=== PATIENT | female | born 1955 | race Caucasian/White ===

== ENCOUNTER 2019-06-05 03:11 | Observation (INO) ==
[2019-06-05] MEDS ORDERED: DUONEB (A & A) INH ONE (03:20)
[2019-06-05] MEDS ORDERED: SOLU-MEDROL IV ONE ×2 (03:21→12:00)
[2019-06-05] MEDS ORDERED: MAGNESIUM SULFATE 1 GM/D5W 1 GM/100 ML IVPB IV ONE (03:22)
--- NOTE | 2019-06-05 03:27 | PROVIDER DOCUMENTATION ---
HPI-Respiratory General - General Chief Complaint: Shortness of Breath Stated Complaint: COPD/SOB Time Seen by Provider: 06/05/19 03:14 Source: patient Allergies/Adverse Reactions: Patient Allergies Allergy/AdvReac Type Severity Reaction Status Date / Time levofloxacin [From Levaquin] Allergy Intermediate RASH Verified 11/28/18 18:55 Home Medications: Home Medication List Medication Instructions Recorded Confirmed Last Taken Type Albuterol Sulfate [Proair Hfa] 8.5 gm IH PRN PRN 11/09/14 08/31/16 11/30/15 History Febuxostat [Uloric] 80 mg PO DAILY 11/09/14 08/31/16 08/31/16 03:00 History Ipratropium/Albuterol Sulfate 3 ml IH PRN PRN 11/09/14 08/31/16 08/30/16 17:00 History [Iprat-Albut 0.5-3(2.5) mg/3 ml] Levothyroxine [Synthroid] 175 microgm PO DAILY 11/09/14 08/31/16 08/31/16 03:00 History Nebivolol [Bystolic] 5 mg PO DAILY 11/09/14 08/31/16 08/31/16 03:00 History Albuterol [Albuterol Neb] 2.5 mg INH RTQ6H PRN #120 neb 11/11/14 08/31/16 11/30/15 Rx Fluticasone/Salmet 250/50 INH 1 inh INH BID 11/30/15 08/31/16 11/30/15 History [Advair 250/50 Diskus] Hydrocodone/APAP 7.5 mg/325 mg 1 each PO Q6H PRN PRN #30 tablet 02/01/16 08/31/16 Unknown Rx [[place]-7.5] Lisinopril 20 mg PO DAILY 08/31/16 08/31/16 08/31/16 03:00 History Naproxen 500 mg PO BID PRN PRN #60 tablet 08/31/16 Unknown Rx Clonidine [Catapres] 0.1 mg PO TID PRN #15 tablet 01/16/17 Unknown Rx Albuterol Sulfate Inhaler 2 puff INH Q6H PRN PRN #1 inhaler 01/03/18 Unknown Rx [Ventolin Hfa] Clonidine [Catapres] 0.1 mg PO HS #30 tab 06/22/18 Unknown Rx Hydroxyzine Pamoate [Vistaril] 25 mg PO BID PRN PRN #30 cap 06/23/18 Unknown Rx - History of Present Illness-Resp Nature of Presenting Problem: Patient is a 64 year old morbidly obese white female with history of severe COPD requiring home oxygen at night, HTN, and tobacco abuse who presents by private car with worsening SOB, dry cough, and wheezing since yesterday that has not responded to home nebulizer treatments ([facility] steroid inhaler, and home oxygen. Followed by Dr. Del Cid. Denies history of CAD, chest pain. Review of Systems - Adult - REVIEW OF SYSTEMS - ADULT Constitutional: reports: chills, fever Eyes: reports: no symptoms reported Ears, Nose, Mouth & Throat: reports: no symptoms reported Cardiovascular: denies: chest pain Respiratory: reports: cough, shortness of breath, wheezing Gastrointestinal: reports: no symptoms reported Genitourinary: reports: no symptoms reported Musculoskeletal: reports: no symptoms reported Neurological: reports: no symptoms reported Psychiatric: reports: anxiety Endocrine: reports: no symptoms reported Hematologic/Lymphatic: reports: no symptoms reported Allergic/Immunologic: reports: no symptoms reported All Other Systems: Reviewed and Negative Past History - Adult - PAST MEDICAL HISTORY-ADULT Review of Records: reports: Old Records Reviewed, Nursing Assessment Review, Medications Reviewed, Social history reviewed & non-contributory. Major Childhood Illnesses: reports: denies history Cardiovascular: reports: HTN Respiratory: reports: asthma, COPD Gastrointestinal: reports: diverticulosis, other Obstetrical/Gynecological: reports: denies history Genitourinary: reports: denies history Musculoskeletal: reports: other (gout) Neurological: reports: denies history Psychiatric: reports: anxiety Endocrine/Immune: reports: thyroid disorder (cancer) Other Conditions: reports: denies history - PRIOR SURGERIES/PROCEDURES Surgical/Procedure History: reports: cholecystectomy, BTL, orthopedic (extremity) (carpal tunnel), other (thyroidectomy) - IMMUNIZATION STATUS Childhood Immunizations: See Nurse Assessment Flu Vaccine: See Nurse Assessment - FAMILY HISTORY Family History: reviewed, not pertinent - SOCIAL HISTORY Smoking: quit greater than 1 year (2-3 ppd for many years) Substance Use: denies Alcohol Use Frequency: occasionally Living Situation: family Physical Exam-General - PHYSICAL EXAM-ADULT Initial Vital Signs Reviewed: Yes - CONSTITUTIONAL General Appearance: alert, obese, other (anxious, in no acute distress) - EYES Eyes: other (clear) - HEAD, EARS, NOSE, MOUTH & THROAT HENMT: normocephalic/atraumatic, moist mucous membranes - NECK Neck: non-tender, full range of motion, supple - RESPIRATORY Respiratory: no pleuratic chest pain, no accessory muscle use, decreased breath sounds, wheezing. negative: accessory muscle use - CARDIOVASCULAR Cardiovascular: regular rate, rhythm - GASTROINTESTINAL (ABDOMEN) Abdominal Exam: non tender, soft, other (obese) - LYMPHATIC Lymphatic: no adenopathy - MUSCULOSKELETAL Back Exam: normal inspection, no CVA tenderness Extremity: normal range of motion, non-tender, no calf tenderness - SKIN Integumentary: normal color, normal turgor, warm/dry - NEUROLOGIC Neurologic: grossly normal, no motor/sensory deficits - PSYCHIATRIC Psych/Mental Status: oriented x 3, anxious Progress - PLAN OF CARE/RESULTS Progress/Plan/Lab Results: Vital Signs - 8 hr 06/05/19 03:21 06/05/19 03:30 06/05/19 03:45 Temperature 100.1 F H Pulse Rate 93 H 90 94 H Respiratory Rate 28 H 13 20 Blood Pressure 159/103 125/100 O2 Sat by Pulse Oximetry 93 L 93 L 94 L 06/05/19 04:15 06/05/19 05:15 Temperature Pulse Rate 86 80 Respiratory Rate 19 20 Blood Pressure 145/106 160/99 O2 Sat by Pulse Oximetry 95 92 L Laboratory Results - last 24 hr 06/05/19 06/05/19 06/05/19 03:30 03:30 03:30 WBC 9.69 RBC 5.04 Hgb 14.6 Hct 46.1 MCV 91.5 MCH 29.0 MCHC 31.7 L RDW Std Deviation 14.3 Plt Count 239 MPV 10.5 H Immature Gran % (Auto) 0.2 Neut % (Auto) 79.1 H Lymph % (Auto) 9.9 L Posey % (Auto) 9.5 H Eos % (Auto) 0.8 Baso % (Auto) 0.5 Immature Gran # (Auto) 0.02 Neut # (Auto) 7.66 H Lymph # (Auto) 0.96 L Posey # (Auto) 0.92 H Eos # (Auto) 0.08 Baso # (Auto) 0.05 Specimen Type Sample Site pH pCO2 pO2 HCO3 Base Excess Oxyhemoglobin ABG O2 Sat (Calculated) ABG O2 Saturation ABG Carboxyhemoglobin ABG Methemoglobin Seun Test A-a O2 Difference Total Hemoglobin Lactate Blood Gas Modality FiO2 % Sodium Potassium Chloride Carbon Dioxide Anion Gap BUN Creatinine Estimated GFR/1.73 m2 BUN/Creatinine Ratio Glucose Calculated Osmolality Calcium Total Bilirubin AST ALT Alkaline Phosphatase Creatine Kinase 130 Troponin T High Sens Zug-F-Tzrirwzesbi Pept Total Protein Albumin Globulin Albumin/Globulin Ratio Plasma Lactate 1.5 Influenza A (Rapid) Influenza B (Rapid) 06/05/19 06/05/19 06/05/19 03:30 03:30 03:37 WBC RBC Hgb Hct MCV MCH MCHC RDW Std Deviation Plt Count MPV Immature Gran % (Auto) Neut % (Auto) Lymph % (Auto) Posey % (Auto) Eos % (Auto) Baso % (Auto) Immature Gran # (Auto) Neut # (Auto) Lymph # (Auto) Posey # (Auto) Eos # (Auto) Baso # (Auto) Specimen Type ARTERIAL Sample Site R RADIAL pH 7.50 H pCO2 32 L pO2 63 HCO3 26.7 H Base Excess 2.5 Oxyhemoglobin 91.3 L ABG O2 Sat (Calculated) 20.1 ABG O2 Saturation 94.5 L ABG Carboxyhemoglobin 2.10 ABG Methemoglobin 1.3 Seun Test YES A-a O2 Difference 47.0 Total Hemoglobin 15.7 Lactate 1.40 Blood Gas Modality ROOM AIR FiO2 % 21.0 Sodium 136 Potassium 4.7 Chloride 97 L Carbon Dioxide 25 Anion Gap 14 BUN 17 Creatinine 0.8 Estimated GFR/1.73 m2 > 60 BUN/Creatinine Ratio 21 Glucose 119 H Calculated Osmolality 275 Calcium 9.6 Total Bilirubin 0.60 AST 17 ALT 16 Alkaline Phosphatase 91 Creatine Kinase Troponin T High Sens Wic-Q-Hynyibchewu Pept 99 Total Protein 7.0 Albumin 4.6 Globulin 2.0 Albumin/Globulin Ratio 2.0 Plasma Lactate Influenza A (Rapid) Influenza B (Rapid) 06/05/19 06/05/19 03:56 04:15 WBC RBC Hgb Hct MCV MCH MCHC RDW Std Deviation Plt Count MPV Immature Gran % (Auto) Neut % (Auto) Lymph % (Auto) Posey % (Auto) Eos % (Auto) Baso % (Auto) Immature Gran # (Auto) Neut # (Auto) Lymph # (Auto) Posey # (Auto) Eos # (Auto) Baso # (Auto) Specimen Type Sample Site pH pCO2 pO2 HCO3 Base Excess Oxyhemoglobin ABG O2 Sat (Calculated) ABG O2 Saturation ABG Carboxyhemoglobin ABG Methemoglobin Seun Test A-a O2 Difference Total Hemoglobin Lactate Blood Gas Modality FiO2 % Sodium Potassium Chloride Carbon Dioxide Anion Gap BUN Creatinine Estimated GFR/1.73 m2 BUN/Creatinine Ratio Glucose Calculated Osmolality Calcium Total Bilirubin AST ALT Alkaline Phosphatase Creatine Kinase Troponin T High Sens 7 Zyp-W-Bxslxhrrloi Pept Total Protein Albumin Globulin Albumin/Globulin Ratio Plasma Lactate Influenza A (Rapid) NEGATIVE Influenza B (Rapid) NEGATIVE Orders Category Date Time Status Cardiac Monitoring DIRECTED Care 06/05/19 03:23 Active NEWS Score >or=5:Order NEWS Bundle S.O. NOW Care 06/05/19 03:24 Active Notify Provider of NEWS Score NOW Care 06/05/19 03:28 Active CHEST-PORTABLE [RAD] Stat Exams 06/05/19 03:23 Taken ABG [RESP] Routine Lab 06/05/19 03:37 Completed BLOOD CULTURE [BLDCUL] Stat Lab 06/05/19 03:35 Ordered CBC WITH ELECTRONIC DIFF [HEME] Stat Lab 06/05/19 03:30 Completed CK PROFILE [SP CHEM] Stat Lab 06/05/19 03:30 Completed CMP [COMPREHENSIVE METABOLIC PANEL] [CHEM] Stat Lab 06/05/19 03:[address] Stat Lab 06/05/19 04:15 Completed LACTATE, PLASMA [CHEM] Lab 06/05/19 06:30 Uncollected LACTATE, PLASMA [CHEM] Lab 06/05/19 09:30 Uncollected LACTATE, PLASMA [CHEM] Q3H Lab 06/05/19 03:30 Completed TROPONIN T HIGH SENSITIVITY Stat Lab 06/05/19 03:56 Completed bnp [PRO B-NATRIURETIC PEPTIDE] Stat Lab 06/05/19 03:30 Completed Albuterol 2.5MG/Ipratrop 0.5MG [Duoneb (A & A)] Med 06/05/19 03:20 Discontinued 3 ml INH NOW ONE CefTRIAXONE [Rocephin] 1 gm Med 06/05/19 04:20 Discontinued 0.9% Sodium Chloride Inj [Ns] 50 ml IV NOW Hydrocodone/APAP 5 mg/325 mg [[place]-5] Med 06/05/19 04:59 Discontinued 1 each PO NOW ONE Magnesium Sulfate 1 gm/D5w Med 06/05/19 03:22 Discontinued 1 gm in 100 ml IV NOW Methylprednisolone Sod Succ [Solu-Medrol] Med 06/05/19 03:21 Discontinued 125 mg IV STAT ONE Aerosol Treatments Routine Oth 06/05/19 03:20 Completed Aerosol Treatments Stat Oth 06/05/19 03:20 Completed Oxygen Device Stat Oth 06/05/19 03:24 Active Pulse Oximetry Stat Oth 06/05/19 03:24 Completed EKG [EKG] Stat Ther 06/05/19 03:24 Draft Result Diagrams: 06/05/19 03:30 06/05/19 03:30 - REASSESSMENT Reassessment #1 Time Reassessed: 05:35 Status: improving Reassessment Comment: continues to wheeze but feels better - EKG 1 Time of EKG reading by physician:: 03:20 EKG Read and Signed by:: Jose Albert Rate: 90 Rhythm: NSR [place]: normal [place] Interval: normal ST Wave: normal Comments: no STEMI - XRAY 1 XRAY Study: Chest XRAY Interpretation: NAD - CONSULTS/PCP/HOSPITALIST Notification #1 *Consult/PCP/Hospitalist*: Dr. Del Cid Time Discussed: 05:45 Consult Disposition: Admit Departure - Departure Date of Disposition Decision: 06/05/19 Time of Disposition Decision: 05:43 DIAGNOSIS: COPD exacerbation Disposition: ADMITTED INPATIENT 09 Certified Medical Emergency: Emergent Condition: Stable Referrals and Follow-Ups: Raad Del Cid MD [Primary Care Provider] - - Critical Care Note This patient required my direct & personal management of CC.: No Attestation - Physician/ NERI Attestation Patient care was provided by Advanced Practice Provider:: No The physician spent face to face time with patient:: Yes Advanced Practice Provider documentation review:: Supervising physician onsite and consulted in the evaluation and care of this patient. The physician did have a face to face encounter with the patient.
[2019-06-05 03:52] LABS: BE 2.5 mmoll (-3.0-3.0); BLOOD TYPE ARTERIAL; HCO3-(ACT) 26.7 mmoll (20.0-26.0); METHB 1.3 % (0.0-1.5); O2(CT) 20.1 mL/dL (15.0-23.0); O2HB 91.3 % (95.0-99.0); PCO2(98.6) 32 mmHg (35-45); PO2(98.6) 63 mmHg (60-100); SAMPLE BLOOD; SAO2 94.5 % (95.0-100.0); THB 15.7 g/dL (11.5-17.4)
[2019-06-05 03:54] LABS: ALLEN TEST YES; MODALITY ROOM AIR
[2019-06-05 04:04] LABS: AGAP 14; ALBUMIN 4.6 g/dL (3.5-5.0); ALKALINE PHOSPHATASE 91 U/L (32-104); BUN 17 mg/dL (8-22); CALCIUM 9.6 mg/dL (8.8-10.2); CHLORIDE 97 mmol/L (98-107); COSMO 275; CREATININE 0.8 mg/dL (0.5-0.9); ESTIMATED GFR > 60; GLUCOSE 119 mg/dL (70-104); GOT 17 U/L (10-30); GPT 16 U/L (10-36); POTASSIUM 4.7 mmol/L (3.5-5.1); SODIUM 136 mmol/L (136-145); TCO2 25 mmol/L (25-35)
[2019-06-05 04:13] LABS: BASO# 0.05 X1000 (0.0-0.2); BASO% 0.5 % (0.0-0.8); EOS# 0.08 X1000 (0.0-0.7); EOS% 0.8 % (0.0-10.0); HEMATOCRIT 46.1 % (37.0-47.0); HEMOGLOBIN 14.6 g/dL (12.0-16.0); IMM GRAN# 0.02 X1000 (0.0-0.04); IMM GRAN% 0.2 % (0.0-0.5); LYMPH# 0.96 X1000 (1.2-3.4); LYMPH% 9.9 % (20.5-51.1); MCHC 31.7 g/dL (33-37); MCV 91.5 FL (81-99); MONO# 0.92 X1000 (0.11-0.59); MONO% 9.5 % (1.7-9.3); MPV 10.5 FL (7.4-10.4); NEUT# 7.66 X1000 (1.4-6.5); NEUT% 79.1 % (42.2-75.2); PLT 239 X1000 (130-400); RBC 5.04 XMIL (4.2-5.4); RDW 14.3 % (11.5-14.5); WBC 9.69 X1000 (4.8-10.8)
[2019-06-05] MEDS ORDERED: ROCEPHIN 1 GM in NS 50 ML IV ONE (04:20)
--- NOTE | 2019-06-05 04:48 | EKG Report ---
Test Performed on : 06/05/2019 03:19:07 AM Test Reason : pain Blood Pressure : / mmHG Vent. Rate : 090 BPM Atrial Rate : 090 BPM P-R Int : 156 ms QRS Dur : 092 ms QT Int : 336 ms P-R-T Axes : 060 -26 046 degrees QTc Int : 411 ms Normal sinus rhythm. Normal ECG When compared with ECG of 28-NOV-2018 19:06, No significant change was found Unconfirmed Result
[2019-06-05] MEDS ORDERED: NORCO-5 PO ONE (04:59)
[2019-06-05 05:08] LABS: INFLUENZA A NEGATIVE (NEGATIVE); INFLUENZA B NEGATIVE (NEGATIVE)
[2019-06-05] MEDS ORDERED: NORCO-5 PO PRN (05:55)
[2019-06-05] MEDS ORDERED: BYSTOLIC PO ONE ×2 (05:57→06:23)
--- NOTE | 2019-06-05 07:59 | Diag Imaging Result Doc PS360 ---
EXAM: CHEST-PORTABLE 06/05/2019 HISTORY: sob TECHNIQUE: Erect AP portable at 0351 COMMENT: There is some increased pulmonary vascularity. The inspiration is less optimal than on 11/28/2018, and otherwise are has been no significant change in the appearance of the chest. IMPRESSION: Stable chest. Electronically signed by Alvarez Adames 06/05/2019 7:56 AM
[2019-06-05] MEDS: DUONEB (A & A) INH SCH ×4 (08:34→19:48)
[2019-06-05] MEDS ORDERED: VENTOLIN HFA INH PRN (10:27)
[2019-06-05] MEDS ORDERED: SYNTHROID PO SCH (10:30)
[2019-06-05] MEDS: NAPROSYN PO SCH (11:52)
[2019-06-05] MEDS: SYNTHROID PO SCH ×2 (12:07)
[2019-06-05 12:34] LABS: BE -1.7 mmoll (-3.0-3.0); BLOOD TYPE ARTERIAL; HCO3-(ACT) 23.6 mmoll (20.0-26.0); O2(CT) 20.1 mL/dL (15.0-23.0); PCO2(98.6) 34 mmHg (35-45); PO2(98.6) 57 mmHg (60-100); SAMPLE BLOOD; SAO2 100.4 % (95.0-100.0); THB 14.8 g/dL (11.5-17.4); pH(98.6) 7.42 (7.35-7.45)
[2019-06-05 12:38] LABS: ALLEN TEST YES; MODALITY ROOM AIR
[2019-06-05] MEDS ORDERED: SOLU-MEDROL IV SCH (14:00)
[2019-06-05] MEDS: SOLU-MEDROL IV SCH (21:33)
[2019-06-06] MEDS: DUONEB (A & A) INH SCH ×7 (00:07→23:01)
[2019-06-06] MEDS: SOLU-MEDROL IV SCH ×3 (03:56→22:16)
[2019-06-06] MEDS: ROCEPHIN 1 GM in NS 50 ML IV SCH (03:57)
[2019-06-06] MEDS: SYNTHROID PO SCH ×2 (06:27→06:28)
[2019-06-06] MEDS ORDERED: NON-FORMULARY BULK MED INH SCH (07:30)
[2019-06-06] MEDS: NAPROSYN PO SCH (10:02)
[2019-06-06] MEDS: ZYLOPRIM PO SCH (10:02)
[2019-06-06] MEDS: ZEBETA PO SCH (10:02)
[2019-06-06] MEDS: MICARDIS PO SCH (10:02)
[2019-06-06] MEDS: TYLENOL PO PRN ×2 (12:43→22:23)
[2019-06-07] MEDS: DUONEB (A & A) INH SCH ×4 (03:07→16:14)
[2019-06-07] MEDS: SOLU-MEDROL IV SCH ×2 (04:42→11:52)
[2019-06-07] MEDS: ROCEPHIN 1 GM in NS 50 ML IV SCH (04:43)
[2019-06-07] MEDS: SYNTHROID PO SCH ×2 (06:27)
[2019-06-07] MEDS ORDERED: VENTOLIN HFA INH PRN (06:45)
[2019-06-07 07:46] VITALS: BP 151/91
[2019-06-07] MEDS: MICARDIS PO SCH (08:10)
[2019-06-07] MEDS: ZEBETA PO SCH (08:10)
[2019-06-07] MEDS: NAPROSYN PO SCH (08:10)
[2019-06-07] MEDS: ZYLOPRIM PO SCH (08:10)
[2019-06-07] MEDS ORDERED: PNEUMOVAX 23 IM ONE (15:42)
--- NOTE | 2019-06-22 08:21 | HISTORY AND PHYSICAL ---
HISTORY OF PRESENT ILLNESS: She is a COPD patient of mine with thyroid disease and hypertension, who presented to the emergency room with a history of severe COPD. She is an ex-smoker who has oxygen that she wears at night, complaining of worsening shortness of breath, a dry cough, and a wheeze that has not responded to home nebulizer treatments, her last treatment was 1929, steroid inhaler and home oxygen. She has no history of CAD and chest pain. So she arrived to the ER with a temperature of 100.1 degrees, pulse was 93, respiratory rate 28, BP 159/103. Her serologies were negative for flu A and B. Her sodium was 136, potassium was 4.7, chloride 97, CO2 25, BUN 17, creatinine 0.8, BUN and creatinine 21, glucose 119, calcium 9.6, AST 17, ALT 16, total protein normal, lactate is normal. Her x-ray showed increased pulmonary vascularity, less than optimal inspiration, otherwise negative. So she was admitted from the ER with blood gases showing a pH of 7.5, a pCO2 of 32, pO2 of 63, on room air with a carboxyhemoglobin of 2.1, a normal lactate acid. It was repeated later, pH was 7.42, pCO2 34, pO2 57, on room air, lactate was 3.6. So she was admitted for intensive nebulizer treatments, oxygen, and probable viral infection. PAST MEDICAL HISTORY: ALLERGIES: She is allergic to levofloxacin. CURRENT MEDICINES: Include albuterol p.r.n., Uloric 80 daily, ipratropium albuterol as needed, levothyroxine 175 per day, Bystolic 5 daily, fluticasone salmeterol 1 inhalation b.i.d., hydrocodone p.r.n., lisinopril 20, naproxen 500 p.o. b.i.d., clonidine 0.1 t.i.d. REVIEW OF SYSTEMS: Constitutional: She said she has felt some chills and fever. Eyes: No change in visual acuity, irritation of the eyes, no change in visual focus. Ears, nose and throat: No pharyngitis, sinusitis, otitis. Cardiovascular: She denies chest pain, palpitations, significant change in her edema, PND, orthopnea. Respiratory: She has a cough. She is short of breath. She feels like she is wheezing, not coughing up any significant phlegm. Gastrointestinal: No nausea, vomiting, diarrhea, constipation, melena, hematochezia, GERD. Genitourinary: No dysuria, polyuria, pyuria, nocturia. Musculoskeletal: No arthralgias, myalgias. Neurological: No headaches, migraines, seizure disorder. Psychiatric: History of anxiety, otherwise negative. Endocrine: No polyuria, polydipsia. She is on thyroid replacement and diabetes medicine. Hematological: No bleeding, bruising, clotting. Allergies: No history of asthma, hayfever. PAST MEDICAL HISTORY: She has a longstanding history of hypertension uncomplicated, asthma, COPD type illness presumed secondary to heavy smoking history. Gastrointestinal: She has diverticulosis. HOUSE WRECKER: Negative. Genitourinary: No polyuria, hematuria. Musculoskeletal: She has a history of gout, degenerative arthritis. Neurological: No seizures, headaches, migraines. Endocrine: She has a history of thyroid cancer, thyroid surgery. PAST SURGICAL HISTORY: She has had a cholecystectomy, bilateral tubal ligation, carpal tunnel syndrome, thyroidectomy. FAMILY HISTORY: Negative. SOCIAL HISTORY: She smoked 2-3 packs for many years. She occasionally drinks alcohol. PHYSICAL EXAMINATION: VITAL SIGNS: Temperature was 100.1 degrees, pulse of 93, respiratory rate 28, BP 150/103. HEENT: Head was normocephalic. Eyes were PERRL. EOMs intact. SC clear. Fundi benign. Nares patent. Oropharynx negative. NECK: Supple, pounding carotids, without thyromegaly, jugular venous distention. Midline trachea. No thyromegaly. Old incision from previous thyroidectomy. CHEST: Rhonchi, increased AP diameter, diminished breath sounds. No consolidative features. ABDOMEN: Soft, obese. No hepatosplenomegaly. No CVA tenderness. EXTREMITIES: Negative for clubbing and cyanosis. She had trace edema. ADMITTING DIAGNOSES: 1. Chronic obstructive pulmonary disease exacerbation. 2. Hypertension. 3. Thyroid disease. 4. Diabetes. 5. Morbid obesity. cc: Raad Del Cid MD
--- NOTE | 2019-06-22 08:24 | PROGRESS NOTE ---
DATE: 06/06/2019 VITAL SIGNS: Her temperature was 98.3, pulse 77, respiratory rate is 18, BP 130/76, O2 saturation 95% on room air. She feels a little better. Her flu swabs were all negative. Chest x-ray did not show any significant pathology. Blood gases were adequate. She has been continued on her respiratory treatments. We have given her some Solu-Medrol and magnesium sulfate and some ceftriaxone and her regular medicines for blood pressure and such. She seems to be doing a bit better. Cultures are negative so far. I do not think she has any significant pneumonia, I think it is an exacerbation of her COPD. cc: Raad Del Cid MD
--- NOTE | 2019-06-22 08:45 | DISCHARGE SUMMARY ---
ADMISSION DATE: 06/05/2019 DISCHARGE DATE: 06/07/2019 A 64-year-old, who has COPD, ex-smoker, who has diabetes and thyroid disease as well as hypertension, presented to the emergency room complaining of shortness of breath, evaluated in the ER and subsequently admitted. She did not run a temperature while hospitalized. Her O2 saturation would drop as far as 94 on 1 occasion but her O2 saturation was okay. Her x-ray did not show any significant pathology. Her microbiologies were negative. She is allergic to Levaquin. She was placed on Solu-Medrol and treated as if she had an exacerbation of her chronic COPD, and over the 2 days that she was hospitalized she got better, definitely did not get any worse. Cultures were negative. So, we treated her with Rocephin, Solu-Medrol, multiple respiratory treatments, continued her diabetic medicines, then we ended up discharging her on her routine and regular medicines along with Trelegy. Will follow her in the office. cc: Raad Del Cid MD
== END 2019-06-07 16:00 | disposition home or self-care (01) ==
LOC: P.MEDSURG 03:11 → P.ED 03:11
PROVIDERS: ADMIT Internal Medicine; ATTEND Internal Medicine